=== PATIENT | male | born 1970 | race Hispanic/Latino ===

== ENCOUNTER 2020-04-04 14:37 | Outpatient (CLI) | payer OTHER ==
--- NOTE | 2020-04-04 16:06 | MRI ---
EXAM: MRI right knee PROVIDED CLINICAL HISTORY: History COMPARISON: Internal derangement FINDINGS: The anterior cruciate ligament, posterior cruciate ligament, medial collateral ligament and lateral c ollateral ligamentous complex demonstrate an intact MR appearance, as does the extensor mechanism. The medial and lateral menisci demonstrate no evidence for tear. No focal articular cartilage defect is apparent. The patellofemoral articular cartilage is suboptimal ly evaluated on the basis of patient motion on the axial sequence, without full-thickness defect apparent. The amount of fluid within the knee joint appears physiologic. There is a small Soto's cyst. Regional marrow and muscular signal appear unremarkable. IMPRESSION: No evidence for internal derangement.
== END 2020-04-04 14:38 | disposition home or self-care (01) ==
LOC: BICMRI 14:37
PROVIDERS: ATTEND Orthopaedic Surgery
DX: M23.91 Unspecified internal derangement of right knee (principal)